=== PATIENT | female | born 1980 | race Caucasian/White ===

== ENCOUNTER 2020-04-19 11:32 | Emergency (ER) | payer OTHER ==
[2020-04-19] MEDS ORDERED: Metoclopramide 10 MG/2 ML SDV IVPUSH ONE (11:59)
[2020-04-19] MEDS ORDERED: Sodium Chloride 0.9% 1,000 ML IV STA (11:59)
[2020-04-19] MEDS ORDERED: Sodium Chloride 0.9% 10 ML Syringe FLUSH PRN (12:00)
[2020-04-19] MEDS ORDERED: diphenhydrAMINE 50 MG/ML SDV IVPUSH ONE (12:00)
--- NOTE | 2020-04-19 12:09 | EDM.PDOC ---
ED HPI GENERAL MEDICAL PROBLEM - General Chief Complaint: Gastrointestinal Problem Stated Complaint: VOMITING/DIARRHEA Time Seen by Provider: 04/19/20 11:47 Source of Information: Reports: Patient History Limitations: Reports: No Limitations - History of Present Illness INITIAL COMMENTS - FREE TEXT/NARRATIVE: Patient is a 39 year old female who presents to the ER with c/o nausea, vomiting, diarrhea, and dizziness. Symptoms initially began on Monday, however she rested and do clear liquids. Nausea vomiting and diarrhea resolved until last evening. She states last evening she developed chills, nausea and vomiting, and diarrhea. This morning she developed a sensation that the room was spinning. She denies any significant abdominal pain, however states she is mildly tender in the right lateral side of her abdomen. Has had no known fevers. Denies a history of vertigo. He does have Zofran at home, however she has not taken any for her symptoms. Right Lower Abdominal Pain Score (Numeric/FACES): 5 - Related Data Allergies Allergy/AdvReac Type Severity Reaction Status Date / Time hydrochlorothiazide Allergy Hives Verified 04/19/20 11:45 Home Meds: Home Meds Amoxicillin/Potassium Clav [Augmentin 875-125 Tablet] 1 each PO BID 05/18/19 [History] Ondansetron [Zofran ODT] 4 mg PO Q6H PRN #10 tab.dis 05/18/19 [Rx] calcium polycarbophiL [Fiber Tabs] 625 mg PO DAILY 05/18/19 [History] levonorgestreL [Mirena] 1 each IY 05/18/19 [History] Past Medical History HEENT History: Reports: None Cardiovascular History: Reports: Other (See Below) Other Cardiovascular History: symptomatic varicose veins of bilateral lower extremities Respiratory History: Reports: None Gastrointestinal History: Reports: None Genitourinary History: Reports: None 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 (See Below) Other SERVER DEVELOPER History: pseudoangiomatous stromal hyperplasia of breast, 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, breast biopsy, Musculoskeletal History: Reports: None Neurological History: Reports: None Psychiatric History: Reports: None Endocrine/Metabolic History: Reports: None Hematologic History: Reports: None Immunologic History: Reports: None Oncologic (Cancer) History: Reports: None Dermatologic History: Reports: None - Past Surgical History Head Surgeries/Procedures: Reports: None HEENT Surgical History: Reports: None Cardiovascular Surgical History: Reports: None Respiratory Surgical History: Reports: None GI Surgical History: Reports: None Female Surgical History: Reports: None Endocrine Surgical History: Reports: None Neurological Surgical History: Reports: None Musculoskeletal Surgical History: Reports: None Oncologic Surgical History: Reports: None Dermatological Surgical History: Reports: None Social & Family History - Family History Family Medical History: Noncontributory - Tobacco Use Tobacco Use Status *Q: Current Every Day Tobacco User Years of Tobacco use: 12 Packs/Tins Daily: 0.1 - Caffeine Use Caffeine Use: Reports: None - Recreational Drug Use Recreational Drug Use: No ED ROS GENERAL - Review of Systems Review Of Systems: See Below Constitutional: Reports: Chills. Denies: Fever HEENT: Reports: Vertigo. Denies: Vision Change Respiratory: Reports: No Symptoms. Denies: Shortness of Breath, Cough Cardiovascular: Reports: No Symptoms Endocrine: Reports: No Symptoms GI/Abdominal: Reports: Abdominal Pain (Mild right lateral abdomen), Diarrhea, Nausea, Vomiting : Reports: No Symptoms Musculoskeletal: Reports: No Symptoms Skin: Reports: No Symptoms Neurological: Reports: Dizziness Psychiatric: Reports: No Symptoms Hematologic/Lymphatic: Reports: No Symptoms Immunologic: Reports: No Symptoms ED EXAM, GI/ABD - Physical Exam Exam: See Below General Appearance: Alert, WD/WN, No Apparent Distress Ears: Normal External Exam, Normal Canal, Hearing Grossly Normal, Normal TMs Respiratory/Chest: No Respiratory Distress, Lungs Clear, Normal Breath Sounds, No Accessory Muscle Use, Chest Non-Tender Cardiovascular: Normal Peripheral Pulses, Regular Rate, Rhythm, No Edema, No Gallop, No JVD, No Murmur, No Rub GI/Abdominal Exam: Normal Bowel Sounds, Soft, No Organomegaly, No Distention, No Abnormal Bruit, No Mass, Pelvis Stable, Tender (mild right lateral tenderness). No: Guarding, Rigid, Rebound Neurological: Alert, Oriented, CN II-XII Intact, Normal Cognition, Normal Gait, Normal Reflexes, No Motor/Sensory Deficits Psychiatric: Normal Affect, Normal Mood Skin Exam: Warm, Dry, Intact, Normal Color, No Rash Course - Vital Signs Last Recorded V/S: Last Vital Signs Temp 98.3 F 04/19/20 11:40 Pulse 80 04/19/20 11:40 Resp 16 04/19/20 11:40 BP 139/93 H 04/19/20 11:40 Pulse Ox 100 04/19/20 11:40 - Orders/Labs/Meds Labs: Laboratory Tests 04/19/20 04/19/20 04/19/20 Range/Units 12:02 12:02 13:10 WBC 7.70 (3.98-10.04) K/mm3 RBC 3.99 (3.98-5.22) M/mm3 Hgb 12.6 (11.2-15.7) gm/dl Hct 40.1 (34.1-44.9) % MCV 100.5 H D (79.4-94.8) fl MCH 31.6 (25.6-32.2) pg MCHC 31.4 L (32.2-35.5) g/dl RDW Std Deviation 48.2 H (36.4-46.3) fL Plt Count 343 (182-369) K/mm3 MPV 9.0 L (9.4-12.3) fl Neut % (Auto) 77.8 H (34.0-71.1) % Lymph % (Auto) 13.5 L (19.3-51.7) % Ripley % (Auto) 7.5 (4.7-12.5) % Eos % (Auto) 0.6 L (0.7-5.8) Baso % (Auto) 0.3 (0.1-1.2) % Neut # (Auto) 5.99 (1.56-6.13) K/mm3 Lymph # (Auto) 1.04 L (1.18-3.74) K/mm3 Ripley # (Auto) 0.58 H (0.24-0.36) K/mm3 Eos # (Auto) 0.05 (0.04-0.36) K/mm3 Baso # (Auto) 0.02 (0.01-0.08) K/mm3 Sodium 138 (136-145) mEq/L Potassium 4.4 (3.5-5.1) mEq/L Chloride 103 (98-107) mEq/L Carbon Dioxide 24 (21-32) mEq/L Anion Gap 15.4 H (5-15) BUN 7 (7-18) mg/dL Creatinine 1.0 (0.55-1.02) mg/dL Est Cr Clr Drug Dosing 72.72 mL/min Estimated GFR (MDRD) > 60 (>60) mL/min BUN/Creatinine Ratio 7.0 L (14-18) Glucose 103 (74-106) mg/dL Calcium 9.3 (8.5-10.1) mg/dL Magnesium 2.1 (1.8-2.4) mg/dl Total Bilirubin 0.4 (0.2-1.0) mg/dL AST 14 L (15-37) U/L ALT 21 (14-59) U/L Alkaline Phosphatase 126 H (46-116) U/L C-Reactive Protein 1.5 H* (<1.0) mg/dL Total Protein 7.8 (6.4-8.2) g/dl Albumin 3.6 (3.4-5.0) g/dl Globulin 4.2 gm/dL Albumin/Globulin Ratio 0.9 L (1-2) Urine Color Yellow (Yellow) Urine Appearance Clear (Clear) Urine pH 8.5 H (5.0-8.0) Ur Specific Hadley 1.020 (1.005-1.030) Urine Protein Negative (Negative) Urine Glucose (UA) Negative (Negative) Urine Ketones Negative (Negative) Urine Occult Blood Negative (Negative) Urine Nitrite Negative (Negative) Urine Bilirubin Negative (Negative) Urine Urobilinogen 0.2 (0.2-1.0) Ur Leukocyte Esterase Negative (Negative) Urine RBC Not seen (0-5) /hpf Urine WBC 0-5 (0-5) /hpf Ur Squamous Epith Cells 0-5 (0-5) /hpf Urine Bacteria Not seen (FEW) /hpf Urine Mucus Not seen (FEW) /hpf SARS-CoV-2 (PCR) (NOT DETECT) 04/19/20 Range/Units 14:34 WBC (3.98-10.04) K/mm3 RBC (3.98-5.22) M/mm3 Hgb (11.2-15.7) gm/dl Hct (34.1-44.9) % MCV (79.4-94.8) fl MCH (25.6-32.2) pg MCHC (32.2-35.5) g/dl RDW Std Deviation (36.4-46.3) fL Plt Count (182-369) K/mm3 MPV (9.4-12.3) fl Neut % (Auto) (34.0-71.1) % Lymph % (Auto) (19.3-51.7) % Ripley % (Auto) (4.7-12.5) % Eos % (Auto) (0.7-5.8) Baso % (Auto) (0.1-1.2) % Neut # (Auto) (1.56-6.13) K/mm3 Lymph # (Auto) (1.18-3.74) K/mm3 Ripley # (Auto) (0.24-0.36) K/mm3 Eos # (Auto) (0.04-0.36) K/mm3 Baso # (Auto) (0.01-0.08) K/mm3 Sodium (136-145) mEq/L Potassium (3.5-5.1) mEq/L Chloride (98-107) mEq/L Carbon Dioxide (21-32) mEq/L Anion Gap (5-15) BUN (7-18) mg/dL Creatinine (0.55-1.02) mg/dL Est Cr Clr Drug Dosing mL/min Estimated GFR (MDRD) (>60) mL/min BUN/Creatinine Ratio (14-18) Glucose (74-106) mg/dL Calcium (8.5-10.1) mg/dL Magnesium (1.8-2.4) mg/dl Total Bilirubin (0.2-1.0) mg/dL AST (15-37) U/L ALT (14-59) U/L Alkaline Phosphatase (46-116) U/L C-Reactive Protein (<1.0) mg/dL Total Protein (6.4-8.2) g/dl Albumin (3.4-5.0) g/dl Globulin gm/dL Albumin/Globulin Ratio (1-2) Urine Color (Yellow) Urine Appearance (Clear) Urine pH (5.0-8.0) Ur Specific Hadley (1.005-1.030) Urine Protein (Negative) Urine Glucose (UA) (Negative) Urine Ketones (Negative) Urine Occult Blood (Negative) Urine Nitrite (Negative) Urine Bilirubin (Negative) Urine Urobilinogen (0.2-1.0) Ur Leukocyte Esterase (Negative) Urine RBC (0-5) /hpf Urine WBC (0-5) /hpf Ur Squamous Epith Cells (0-5) /hpf Urine Bacteria (FEW) /hpf Urine Mucus (FEW) /hpf SARS-CoV-2 (PCR) Not detected (NOT DETECT) Meds: Medications Discontinued Medications Generic Name Dose Route Start Last Admin Trade Name Valorie PRN Reason Stop Dose Admin Diphenhydramine HCl 25 mg 04/19/20 12:00 04/19/20 12:10 Benadryl IVPUSH 04/19/20 12:01 25 mg ONETIME ONE Administration Sodium Chloride 1,000 mls @ 999 mls/hr 04/19/20 11:59 04/19/20 12:10 Normal Saline IV 04/19/20 12:59 999 mls/hr NOW STA Administration Metoclopramide HCl 7.5 mg 04/19/20 11:59 04/19/20 12:10 Reglan IVPUSH 04/19/20 12:00 7.5 mg ONETIME ONE Administration Sodium Chloride 10 ml 04/19/20 12:00 04/19/20 12:10 Saline Flush FLUSH 10 ml ASDIRECTED PRN Administration Keep Vein Open - Re-Assessments/Exams Free Text/Narrative Re-Assessment/Exam: 04/19/20 13:07 Hematology was grossly unremarkable. Patient is feeling much better after the medications given. She is providing us with a urine sample now. 04/19/20 1335 Urinalysis was also grossly unremarkable. Patient is feeling much better after the medications and fluids given. I will send a prescription for Zofran for nausea. Recommend clear liquid diet. Discussed return to ER symptoms fail to improve over the next few days or if they worsen.. Discharge instructions document. Departure - Departure Time of Disposition: 13:31 Disposition: Home, Self-Care 01 Condition: Good Clinical Impression: Gastroenteritis, Vertigo - Discharge Information *PRESCRIPTION DRUG MONITORING PROGRAM REVIEWED*: No *COPY OF PRESCRIPTION DRUG MONITORING REPORT IN PATIENT POPEYE: No Instructions: Viral Gastroenteritis, Adult, Dizziness Referrals: Michelle Moreno PA-C [Primary Care Provider] - Forms: ED Department Discharge, ED Return to Work/School Form Additional Instructions: You were seen in the emergency department today for nausea, vomiting, diarrhea, and vertigo symptoms. Blood work and urinalysis were completed and found to be normal. While in the ER, you received a liter of IV fluids, Benadryl, and Reglan for nausea and vomiting, as well as vertigo treatment. This did improve your symptoms. Stated you are feeling much better. Recommend that you go home and rest. Maintain a clear liquid diet for the next 24 to 72 hours and then advance as tolerated. You may use Zofran for nausea and meclizine for vertigo symptoms. Symptoms of vertigo generally resolve within a few days, however if you continue to have symptoms after this timeframe, I would recommend follow-up with your primary care provider as sometimes treatment through physical therapy or an activity aide as needed. If you experience any new or worsening symptoms of concern, please do not hesitate to return to the emergency department. Sepsis Event Note (ED) - Evaluation Sepsis Screening Result: No Definite Risk
== END 2020-04-19 14:13 | disposition home or self-care (01) ==
LOC: JD.ED 11:32
DX: K52.9 Noninfective gastroenteritis and colitis, unspecified (principal); F17.210 Nicotine dependence, cigarettes, uncomplicated; Z20.828 Contact with and (suspected) exposure to other viral communicable diseases; Z88.8 Allergy status to other drugs, medicaments and biological substances
CPT/HCPCS: 36415; 80053; 81001; 83735; 85025; 86140; 87635; 96374; 96375; 99284; J1200; J2765; J7030; U0002